=== PATIENT | female | born 1995 | race Caucasian/White ===

== ENCOUNTER 2022-01-01 18:19 | Emergency (ER) | payer BC, OTHER ==
[2022-01-01 18:31] VITALS: TEMP 98.5
[2022-01-01] MEDS ORDERED: SODIUM CHLORIDE 0.9% 1,000 ML IV STA (18:43)
[2022-01-01] MEDS ORDERED: MORPHINE SULFATE 4 MG/ML SYRINGE IV STA (18:45)
[2022-01-01] MEDS ORDERED: ONDANSETRON 4 MG/2 ML VIAL IVP STA (18:45)
[2022-01-01 19:15] LABS: Anisocytosis Slight; Basophils % (A) 0 %; Eosinophils % (A) 0 %; HCT 27.1 % (34.0-46.0); HGB 7.3 gm/dL (11.4-16.0); Hypochromasia Marked; Lymphocytes # (A) 0.7 k/uL (1.0-4.8); Lymphocytes % (A) 5 %; MCH 20.6 pg (25.0-35.0); MCHC 26.9 g/dL (31.0-37.0); MCV 76.7 fL (80.0-100.0); Mean Platelet Volume 6.9; Microcytosis Slight; Monocytes # (A) 0.6 k/uL (0-1.0); Monocytes % (A) 4 %; Neutrophils # (A) 12.3 k/uL (1.3-7.7); Neutrophils % (A) 89 %; Platelet Count 603 k/uL (150-450); RBC 3.54 m/uL (3.80-5.40); RDW 17.4 % (11.5-15.5); WBC 13.7 k/uL (3.8-10.6)
[2022-01-01 19:24] LABS: ALT 32 U/L (4-34); AST 17 U/L (14-36); African American GFR (CKD) >90 (>60 ml/min/1.73 sqM); Albumin 3.2 g/dL (3.5-5.0); Alkaline Phosphatase 180 U/L (38-126); Amylase 44 U/L (30-110); Anion Gap 9 mmol/L; Blood Urea Nitrogen 12 mg/dL (7-17); Carbon Dioxide 22 mmol/L (22-30); Chloride 104 mmol/L (98-107); Glucose 113 mg/dL (74-99); Lipase 83 U/L (23-300); Non-African American GFR(CKD) >90 (>60 ml/min/1.73 sqM); Potassium 3.9 mmol/L (3.5-5.1); Sodium 135 mmol/L (137-145); Total Bilirubin 0.6 mg/dL (0.2-1.3); Total Protein 6.8 g/dL (6.3-8.2)
--- NOTE | 2022-01-01 19:29 | ED ---
General Adult HPI - General Chief complaint: Abdominal Pain Stated complaint: Abd pain Time Seen by Provider: 01/01/22 18:36 Source: patient, RN notes reviewed Mode of arrival: ambulatory Limitations: no limitations - History of Present Illness Initial comments: This is a pleasant 26-year-old female presents to emergency department complaining of left-sided and left lower quadrant abdominal pain for the last 1.5 months. Patient initially went to an ER in [place] and was told she had a muscle strain. Patient states that the pain continued and she ended up going to an urgent care and [place]. Patient was given steroids at that time. Patient states that that seemed to help but she finished those yesterday and the pain returned. Patient went to [facility] our urgent care today and was sent here for evaluation. No headache, no fever or chills, no changes in vision or hearing, no sore throat or difficulty with speech, no neck pain, no chest pain or shortness of breath, no abdominal pain, no nausea or vomiting, no changes in urination or bowel movements, no numbness or tingling, no extremity pain, no skin rashes or lesions. - Related Data Home Medications Medication Instructions Recorded Confirmed Ibuprofen [Motrin Ib] 800 mg PO Q8H PRN 01/01/22 01/01/22 Allergies Allergy/AdvReac Type Severity Reaction Status Date / Time No Known Allergies Allergy Verified 01/01/22 19:22 Review of Systems ROS Statement: Those systems with pertinent positive or pertinent negative responses have been documented in the HPI. ROS Other: All systems not noted in ROS Statement are negative. Past Medical History Additional Past Medical History / Comment(s): anemia, ulcerative colitis History of Any Multi-Drug Resistant Organisms: None Reported Past Surgical History: No Surgical Hx Reported Past Psychological History: No Psychological Hx Reported Smoking Status: Never smoker Past Alcohol Use History: None Reported Past Drug Use History: None Reported - Past Family History Father Family Medical History: Hypertension General Exam - General Exam Comments Initial Comments: This is a healthy-appearing 26-year-old female in mild distress. Patient does not appear to be ill or toxic. Patient was noted to be tachycardic in triage. As I am assessing patient's heart rate she is approximately 108. This is via auscultation and via radial pulse. Limitations: no limitations General appearance: alert, in distress Head exam: Present: atraumatic, normocephalic, normal inspection Eye exam: Present: normal appearance, PERRL, EOMI. Absent: scleral icterus, c onjunctival injection, periorbital swelling ENT exam: Present: normal exam, mucous membranes moist Neck exam: Present: normal inspection. Absent: tenderness, meningismus, lymphadenopathy Respiratory exam: Present: normal lung sounds bilaterally. Absent: respiratory distress, wheezes, rales, rhonchi, stridor Cardiovascular Exam: Present: regular rate, normal rhythm, normal heart sounds. Absent: systolic murmur, diastolic murmur, rubs, gallop, clicks GI/Abdominal exam: Present: tenderness, guarding, normal bowel sounds, other (Mass noted in the left inguinal area.). Absent: distended, rebound, rigid Extremities exam: Present: normal inspection, full ROM, normal capillary refill. Absent: tenderness, pedal edema, joint swelling, calf tenderness Back exam: Present: normal inspection Neurological exam: Present: alert, oriented X3, CN II-XII intact Psychiatric exam: Present: normal affect, normal mood Skin exam: Present: warm, dry, intact, normal color. Absent: rash Course Vital Signs 01/01/22 01/01/22 01/01/22 18:27 19:33 20:12 Temperature 98.5 F Pulse Rate 147 H 117 H 112 H Respiratory 18 18 16 Rate Blood Pressure 118/68 121/65 114/62 O2 Sat by Pulse 100 98 98 Oximetry - Reevaluation(s) Reevaluation #1: 01/01/22 20:16 Medical record is reviewed Symptoms are improved here in the emergency department Patient is informed of results and questions answered Patient in no distress Patient remains tachycardic. Antibiotics ordered based on the patient's CBC, white blood cell count with left shift. Reevaluation #2: 01/01/22 20:59 Medical record is reviewed Symptoms are improved here in the emergency department Patient is informed of results and questions answered Patient in no distress Patient improved pain [place]. Patient still tachycardic. Computed tomography scan shows intra-abdominal abscess 2. Medical Decision Making - Medical Decision Making Patient presented with abdominal pain for 1-1/2 months. Patient has a left inguinal mass. Differential includes left inguinal hernia, incarcerated or strangulated hernia, other intra-abdominal infectious process such as diverticulitis or intra-abdominal abscess. Unlikely be genitourinary based on the patient's presentation. Not consistent with cardiopulmonary disease. Discussed with Dr. Nova at [facility], he is a colorectal surgeon who accepts transfer the patient ER to ER. Discussed with Dr. Carrasco the ER physician. All findings discussed with the patient. All questions answered. Discussed reasons for transfer. No colorectal surgery at this facility. Patient concurs with this treatment plan. Blood cultures were sent. Patient was given Zosyn here in the ER. - Lab Data Result diagrams: 01/01/22 18:45 01/01/22 18:45 Lab Results 01/01/22 01/01/22 01/01/22 Range/Units 18:45 18:45 18:45 WBC 13.7 H (3.8-10.6) k/uL RBC 3.54 L (3.80-5.40) m/uL Hgb 7.3 L (11.4-16.0) gm/dL Hct 27.1 L (34.0-46.0) % MCV 76.7 L (80.0-100.0) fL MCH 20.6 L (25.0-35.0) pg MCHC 26.9 L (31.0-37.0) g/dL RDW 17.4 H (11.5-15.5) % Plt Count 603 H (150-450) k/uL MPV 6.9 Neutrophils % 89 % Lymphocytes % 5 % Monocytes % 4 % Eosinophils % 0 % Basophils % 0 % Neutrophils # 12.3 H (1.3-7.7) k/uL Lymphocytes # 0.7 L (1.0-4.8) k/uL Monocytes # 0.6 (0-1.0) k/uL Eosinophils # 0.0 (0-0.7) k/uL Basophils # 0.0 (0-0.2) k/uL Hypochromasia Marked Anisocytosis Slight Microcytosis Slight Sodium (137-145) mmol/L Potassium (3.5-5.1) mmol/L Chloride (98-107) mmol/L Carbon Dioxide (22-30) mmol/L Anion Gap mmol/L BUN (7-17) mg/dL Creatinine (0.52-1.04) mg/dL Est GFR (CKD-EPI)AfAm (>60 ml/min/1.73 sqM) Est GFR (CKD-EPI)NonAf (>60 ml/min/1.73 sqM) Glucose (74-99) mg/dL Plasma Lactic Acid Darshan (0.7-2.0) mmol/L Calcium (8.4-10.2) mg/dL Total Bilirubin (0.2-1.3) mg/dL AST (14-36) U/L ALT (4-34) U/L Alkaline Phosphatase (38-126) U/L Total Protein (6.3-8.2) g/dL Albumin (3.5-5.0) g/dL Amylase (30-110) U/L Lipase (23-300) U/L Urine Color Yellow Urine Appearance Clear (Clear) Urine pH 5.5 (5.0-8.0) Ur Specific [place] 1.024 (1.001-1.035) Urine Protein 1+ H (Negative) Urine Glucose (UA) Negative (Negative) Urine Ketones Negative (Negative) Urine Blood Negative (Negative) Urine Nitrite Negative (Negative) Urine Bilirubin Negative (Negative) Urine Urobilinogen <2.0 (<2.0) mg/dL Ur Leukocyte Esterase Moderate H (Negative) Urine RBC 2 (0-5) /hpf Urine WBC 7 H (0-5) /hpf Ur Squamous Epith Cells 2 (0-4) /hpf Hyaline Casts 4 H (0-2) /lpf Urine Mucus Few H (None) /hpf Urine HCG, Qual Not Detected (Not Detectd) 01/01/22 01/01/22 Range/Units 18:45 18:45 WBC (3.8-10.6) k/uL RBC (3.80-5.40) m/uL Hgb (11.4-16.0) gm/dL Hct (34.0-46.0) % MCV (80.0-100.0) fL MCH (25.0-35.0) pg MCHC (31.0-37.0) g/dL RDW (11.5-15.5) % Plt Count (150-450) k/uL MPV Neutrophils % % Lymphocytes % % Monocytes % % Eosinophils % % Basophils % % Neutrophils # (1.3-7.7) k/uL Lymphocytes # (1.0-4.8) k/uL Monocytes # (0-1.0) k/uL Eosinophils # (0-0.7) k/uL Basophils # (0-0.2) k/uL Hypochromasia Anisocytosis Microcytosis Sodium 135 L (137-145) mmol/L Potassium 3.9 (3.5-5.1) mmol/L Chloride 104 (98-107) mmol/L Carbon Dioxide 22 (22-30) mmol/L Anion Gap 9 mmol/L BUN 12 (7-17) mg/dL Creatinine 0.61 (0.52-1.04) mg/dL Est GFR (CKD-EPI)AfAm >90 (>60 ml/min/1.73 sqM) Est GFR (CKD-EPI)NonAf >90 (>60 ml/min/1.73 sqM) Glucose 113 H (74-99) mg/dL Plasma Lactic Acid Darshan 1.2 (0.7-2.0) mmol/L Calcium 9.0 (8.4-10.2) mg/dL Total Bilirubin 0.6 (0.2-1.3) mg/dL AST 17 (14-36) U/L ALT 32 (4-34) U/L Alkaline Phosphatase 180 H (38-126) U/L Total Protein 6.8 (6.3-8.2) g/dL Albumin 3.2 L (3.5-5.0) g/dL Amylase 44 (30-110) U/L Lipase 83 (23-300) U/L Urine Color Urine Appearance (Clear) Urine pH (5.0-8.0) Ur Specific [place] (1.001-1.035) Urine Protein (Negative) Urine Glucose (UA) (Negative) Urine Ketones (Negative) Urine Blood (Negative) Urine Nitrite (Negative) Urine Bilirubin (Negative) Urine Urobilinogen (<2.0) mg/dL Ur Leukocyte Esterase (Negative) Urine RBC (0-5) /hpf Urine WBC (0-5) /hpf Ur Squamous Epith Cells (0-4) /hpf Hyaline Casts (0-2) /lpf Urine Mucus (None) /hpf Urine HCG, Qual (Not Detectd) Critical Care Time Critical Care Time: Yes (31) Total Critical Care Time: 31 Critical Care Time: Multiple re-evaluations. Multiple phone calls to consultants, colorectal surgeon at the receiving facility, ER physician at receiving facility. Reevaluation of the patient and response to treatment Disposition Clinical Impression: Intra-abdominal abscess, Sepsis, Microcytic anemia, Chronic anemia Disposition: OTHER INSTITUTION NOT DEFINED Condition: Fair Is patient prescribed a controlled substance at d/c from ED?: No Time of Disposition: 20:59 - Out of Hospital Transfer - Req. Specs Out of Hospital Transfer - Requested Specifics: Other Emergency Center
[2022-01-01 19:40] LABS: Appearance,Urine Clear (Clear); Bilirubin,Urine Negative (Negative); Blood,Urine Negative (Negative); Color,Urine Yellow; Glucose,Urine (UA) Negative (Negative); Hyaline Casts,Urine 4 /lpf (0-2); Ketones,Urine Negative (Negative); Leukocyte Esterase,Urine Moderate (Negative); Mucus,Urine Few /hpf; Nitrite,Urine Negative (Negative); PH, Urine 5.5 (5.0-8.0); Protein,Urine 1+ (Negative); RBC,Urine 2 /hpf (0-5); Specific Gravity,Urine 1.024 (1.001-1.035); Squamous Epithelial Cell,Urine 2 /hpf (0-4); Urobilinogen,Urine <2.0 mg/dL (<2.0); WBC,Urine 7 /hpf (0-5)
--- NOTE | 2022-01-01 20:08 | XR ---
EXAMINATION TYPE: XR chest 1V portable DATE OF EXAM: 01/01/2022 COMPARISON: NONE HISTORY: Chest pain TECHNIQUE: Single view FINDINGS: Heart and mediastinum are normal. Lungs are clear. Diaphragm is normal. Bony thorax is inta ct. IMPRESSION: Normal chest.
[2022-01-01 20:13] VITALS: RESP 16
[2022-01-01] MEDS ORDERED: PIPERACILLIN-TAZOBACTAM 3.375 GM in SODIUM CHLORIDE 0.9% 100 ML IVPB STA (20:16)
--- NOTE | 2022-01-01 20:37 | CT ---
EXAMINATION TYPE: CT abdomen pelvis w con DATE OF EXAM: 01/01/2022 COMPARISON: 02/19/2015 HISTORY: LLQ pain CT DLP: 626.9 mGycm Automated exposure control for dose reduction was used. CONTRAST: Performed with IV Contrast, patient injected with 100 mL of Isovue 370. Images obtained from the diaphragm to the floor the pelvis with IV contrast. The lung bases are clear. There is no pleural effusion. Heart size is normal. There is no pericardial effusion. Liver spleen and stomach pancreas and gallbladder appear normal. The bile ducts are not di lated. There is no adrenal mass. Kidneys show satisfactory contrast opacification. There is no hydronephrosi s. Ureters are not dilated. Delayed images show normal renal excretion. Bladder distends smoothly. There is some wall thickening of the descending colon. There is mild surrounding fat stranding. There is mild wall thickening also of the sigmoid colon. There is a large complex retroperitoneal fluid co llection along the left psoas muscle and left iliac bone that measures 7 x 5 x 13 cm. This also conta ins air bubbles and consistent with retroperitoneal abscess. There is also air containing complex flu id collection in the left inguinal region measuring 7 x 3.5 cm consistent with a second abscess. Uterus is anteverted. There is no free fluid in the pelvis. There is no pelvic mass. Appendix not see n. No sign of thickened appendix. The lumbar vertebra appear intact. There is no compression fracture . Posterior elements are intact. The bony pelvis is intact. IMPRESSION: Retroperitoneal complex fluid on the left side consistent with large abscess. There is a small absces s left inguinal region. There is mild wall thickening of the descending colon and proximal sigmoid co desi consistent with some colitis. There is possible sinus tract communication between the descending colon in the left psoas retroperitoneal abscess seen on axial image 53. There is possible sinus tract communication with the left inguinal abscess and the proximal sigmoid colon on axial image 65.
[2022-01-01 22:03] VITALS: BP 117/64; PULSE 100
== END 2022-01-01 22:03 | disposition other institution (70) ==
LOC: EC 18:19
DX: L02.211 Cutaneous abscess of abdominal wall (principal); A41.9 Sepsis, unspecified organism; D50.9 Iron deficiency anemia, unspecified; D53.9 Nutritional anemia, unspecified; Z20.822 Contact with and (suspected) exposure to COVID-19
CPT/HCPCS: 99291; 96365; 96375 ×2; 36415; 80053; 82150; 83605; 83690; 85025; 81001; 81025; 87040; 87635; 71045; 74177; J2543; J2270; J2405; Q9967